=== PATIENT | female | born 1945 | race Hispanic/Latino ===

== ENCOUNTER 2018-04-25 06:26 | Day surgery (SDC) | payer OTHER ==
[~2018-04-25] VITALS: Ht 30.5 cm; Wt 0.5 kg
[~2018-04-25 06:26] MED LIST: ALPR0.5T24 PO; BENA20TA2 PO; BISOPROL FUM5 MG PO; CETI10TA PO; CLOP75TA2 PO; CODEINE/APAP1 TA1 PO; METO50TA27 PO; MICRO-K10 MEQ PO; MONTELUKAST SOD10 MG PO; NIACIN500 M3 PO; NITR0.4S2 SL; OMEP20CA PO; PROM25TA52 PO; ROPINIROLE1 MG PO; ST JOSEPH LOW D81 MG PO; VENLAFAXINE25 MG PO; VITAMIN D-31000 UNI1 PO
== END 2018-04-25 08:17 | disposition home or self-care (01) ==
LOC: OR 06:26
PROC: 08RJ3JZ Replacement of Right Lens with Synthetic Substitute, Percutaneous Approach (ICD-10-PCS; principal; 2018-04-25)
DX: H25.811 Combined forms of age-related cataract, right eye (principal)
CPT/HCPCS: 66984; J0171; J2250; V2632

== ENCOUNTER 2018-05-30 05:48 | Day surgery (SDC) | payer OTHER ==
[~2018-05-30] VITALS: Ht 30.5 cm; Wt 0.5 kg
== END 2018-05-30 08:15 | disposition home or self-care (01) ==
LOC: OR 05:48
PROC: 08RK3JZ Replacement of Left Lens with Synthetic Substitute, Percutaneous Approach (ICD-10-PCS; principal; 2018-05-30)
DX: H25.812 Combined forms of age-related cataract, left eye (principal)
CPT/HCPCS: 66984; J0171; J2250; V2632